=== PATIENT | male | born 1970 | race African-American/Black ===

== ENCOUNTER 2017-09-30 22:55 | Emergency (ER) | payer BC ==
[~2017-09-30] VITALS: Ht 188 cm; Wt 116.0 kg
[2017-09-30 23:22] VITALS: BP 172/105
== END 2017-10-01 | disposition left against medical advice (07) ==
LOC: ER 22:55
DX: R06.02 Shortness of breath (principal); Z53.21 Procedure and treatment not carried out due to patient leaving prior to being seen by health care provider

== ENCOUNTER 2017-11-26 12:18 | Emergency (ER) | payer BC ==
[~2017-11-26] VITALS: Ht 188 cm; Wt 113.0 kg
[2017-11-26 12:46] VITALS: BP 177/110
== END 2017-11-26 20:40 | disposition left against medical advice (07) ==
LOC: ER 17:40
DX: Z04.3 Encounter for examination and observation following other accident (principal); Z53.21 Procedure and treatment not carried out due to patient leaving prior to being seen by health care provider

== ENCOUNTER 2021-08-27 09:02 | Inpatient (IN) | payer OTHER ==
[~2021-08-27] VITALS: Ht 188 cm; Wt 110.2 kg
[2021-08-27] MEDS ORDERED: AMLODIPINE 2.5MG TABLET PO ONE (09:30)
[2021-08-27 09:59] LABS: BASOPHILS % 0.6 % (0.0-2.0); EOSINOPHILS % 4.6 % (0.0-5.0); HEMATOCRIT. 43.9 % (42.0-52.0); HEMOGLOBIN. 14.9 g/dL (14.0-18.0); LYMPHOCYTES % 34.9 % (20.0-50.0); MEAN CORPUSCULAR HEMOGLOBIN 29.3 pg (28.0-32.0); MEAN CORPUSCULAR VOLUME 86.2 fL (80.0-94.0); MEAN PLATELET VOLUME 7.1 fl (7.4-10.4); MONOCYTES % 9.7 % (2.0-8.0); NEUTROPHILS % 50.2 % (40.0-76.0); PLATELET 236 x1000/uL (130-400); RED BLOOD CELL COUNT 5.09 mill/uL (4.7-6.1); RED CELL DISTRIBUTION WIDTH 13.6 % (11.6-14.6)
[2021-08-27 10:13] LABS: CHLORIDE 109 mEq/L (98-107)
[2021-08-27] MEDS ORDERED: NITROGLYCERIN 0.1MG/HR PATCH TOP ONE (10:30)
[2021-08-27] MEDS ORDERED: AMLODIPINE 5MG TABLET PO ONE (10:30)
[2021-08-27] MEDS ORDERED: ONDANSETRON HCL 4MG/2ML INJ IV STA (10:33)
[2021-08-27] MEDS ORDERED: MORPHINE SULFATE 4 MG/ML CPJ (NOT FOR IM USE) IV STA (10:33)
[2021-08-27 11:39] LABS: CREATINE KINASE 260 IU/L (39-308)
[2021-08-27 12:15] LABS: *AMPHETAMINES SCREEN URINE NEGATIVE (NEGATIVE); *BARBITURATES SCREEN URINE NEGATIVE (NEGATIVE); *BENZODIAZEPINES SCREEN URINE NEGATIVE (NEGATIVE); *COCAINE SCREEN URINE NEGATIVE (NEGATIVE); CANNABINOID URINE SCREEN NEGATIVE (NEGATIVE); METHADONE URINE SCREEN NEGATIVE (NEGATIVE); OPIATES URINE SCREEN NEGATIVE (NEGATIVE); PHENCYCLIDINE URINE SCREEN NEGATIVE (NEGATIVE)
[2021-08-27] MEDS ORDERED: LORAZEPAM 0.5MG TABLET PO ONE (12:15)
[2021-08-27] MEDS ORDERED: ONDANSETRON HCL 4MG/2ML INJ IV PRN (14:30)
[2021-08-27] MEDS ORDERED: ACETAMINOPHEN 325MG TABLET PO PRN (14:30)
[2021-08-27] MEDS ORDERED: MAGNESIUM/ALUMINUM HYDROXIDE/SIMETHICONE 30ML UDC PO PRN (14:30)
[2021-08-27] MEDS ORDERED: NALOXONE HCL 0.4MG/ML VIAL IV PRN (14:45)
[2021-08-27] MEDS: ENOXAPARIN 30MG/0.3ML SYR SUBCUT SCH ×2 (15:31→22:24)
[2021-08-27] MEDS: CLONIDINE 0.1MG TABLET PO PRN ×2 (15:40→20:08)
[2021-08-27] MEDS: HYDROCODONE/ACETAMINOPHEN 5/325MG TABLET PO PRN ×2 (15:40→20:09)
[2021-08-27 17:51] VITALS: BP 157/87
[2021-08-27 18:00] VITALS: BP 154/90
[2021-08-27 20:01] VITALS: BP 150/68
[2021-08-27] MEDS: ATORVASTATIN CALCIUM 20MG TABLET PO SCH (20:09)
[2021-08-27] MEDS: ASPIRIN 81MG EC TABLET PO SCH (20:09)
[2021-08-27] MEDS: METOPROLOL TARTRATE 25MG TABLET PO SCH (20:09)
[2021-08-27 21:27] LABS: CREATINE KINASE 133 IU/L (39-308)
[2021-08-27 21:40] LABS: CREATINE KINASE MB FRACTION < 1.0 ng/mL (0.5-3.6)
[2021-08-27 22:01] VITALS: BP 132/75
[2021-08-27] MEDS: NITROGLYCERIN OINT 1GM/INCH UDPKT TD SCH (22:24)
[2021-08-28] VITALS (12 sets, daily range): BP systolic 109–172; BP diastolic 57–98
[2021-08-28] MEDS: OMEPRAZOLE 20MG CAPSULE EXTENDED RELEASE PO SCH (06:49)
[2021-08-28] MEDS: NITROGLYCERIN OINT 1GM/INCH UDPKT TD SCH ×3 (06:49→21:45)
[2021-08-28 07:57] LABS: BASOPHILS % 0.7 % (0.0-2.0); HEMATOCRIT. 40.1 % (42.0-52.0); LYMPHOCYTES % 42.6 % (20.0-50.0); MEAN CORPUSCULAR VOLUME 85.6 fL (80.0-94.0); MEAN PLATELET VOLUME 7.6 fl (7.4-10.4); MONOCYTES % 9.3 % (2.0-8.0); NEUTROPHILS % 42.4 % (40.0-76.0); PLATELET 240 x1000/uL (130-400); RED BLOOD CELL COUNT 4.68 mill/uL (4.7-6.1); RED CELL DISTRIBUTION WIDTH 13.8 % (11.6-14.6)
[2021-08-28 08:08] LABS: CHLORIDE 108 mEq/L (98-107)
[2021-08-28 08:28] LABS: CREATINE KINASE MB FRACTION < 1.0 ng/mL (0.5-3.6)
[2021-08-28 08:39] LABS: HDL CHOLESTEROL 49 mg/dL (40-59); T4 FREE 0.95 ng/dL (0.76-1.46)
[2021-08-28 08:41] LABS: PHOSPHORUS 3.6 mg/dL (2.5-4.9)
[2021-08-28 08:42] LABS: LDL CHOLESTEROL 140 mg/dL (5-100)
[2021-08-28] MEDS: ASPIRIN 81MG EC TABLET PO SCH (09:15)
[2021-08-28] MEDS: METOPROLOL TARTRATE 25MG TABLET PO SCH ×2 (09:16→21:44)
[2021-08-28] MEDS: ENOXAPARIN 30MG/0.3ML SYR SUBCUT SCH ×2 (09:16→21:45)
[2021-08-28 16:53] LABS: CREATINE KINASE MB FRACTION < 1.0 ng/mL (0.5-3.6)
[2021-08-28] MEDS: ATORVASTATIN CALCIUM 20MG TABLET PO SCH (21:44)
[2021-08-28] MEDS: CLONIDINE 0.1MG TABLET PO PRN (21:44)
[2021-08-28] MEDS: AMLODIPINE 5MG TABLET PO SCH (21:48)
[2021-08-29] VITALS (10 sets, daily range): BP systolic 136–157; BP diastolic 61–98
[2021-08-29] MEDS: OMEPRAZOLE 20MG CAPSULE EXTENDED RELEASE PO SCH ×2 (05:50→09:55)
[2021-08-29] MEDS: NITROGLYCERIN OINT 1GM/INCH UDPKT TD SCH (06:28)
[2021-08-29 07:08] LABS: BASOPHILS % 0.5 % (0.0-2.0); EOSINOPHILS % 3.5 % (0.0-5.0); HEMATOCRIT. 40.5 % (42.0-52.0); LYMPHOCYTES % 33.3 % (20.0-50.0); MEAN CORPUSCULAR VOLUME 86.7 fL (80.0-94.0); MEAN PLATELET VOLUME 7.4 fl (7.4-10.4); MONOCYTES % 10.3 % (2.0-8.0); NEUTROPHILS % 52.4 % (40.0-76.0); PLATELET 223 x1000/uL (130-400); RED BLOOD CELL COUNT 4.67 mill/uL (4.7-6.1); RED CELL DISTRIBUTION WIDTH 13.9 % (11.6-14.6)
[2021-08-29 07:14] LABS: PARTIAL THROMBOPLASTIN TIME 30.5 sec (23.4-31.0); PROTHROMBIN TIME 11.1 sec (9.6-11.0)
[2021-08-29 07:26] LABS: CHLORIDE 107 mEq/L (98-107)
[2021-08-29] MEDS ORDERED: REGADENOSON 0.4 MG/5 ML IV NR (09:00)
[2021-08-29] MEDS: AMLODIPINE 5MG TABLET PO SCH (09:55)
[2021-08-29] MEDS: ASPIRIN 81MG EC TABLET PO SCH (09:55)
[2021-08-29] MEDS: METOPROLOL TARTRATE 25MG TABLET PO SCH (09:56)
[2021-08-29] MEDS ORDERED: REGADENOSON 0.4 MG/5 ML IV ONE (10:48)
[2021-08-29] MEDS ORDERED: ISOSORBIDE MONONITRATE 30MG TABLET SR 24HR PO SCH (15:15)
[2021-08-29] MEDS ORDERED: ISOS30TA91 PO (16:16)
[2021-08-29] MEDS ORDERED: ASPI-1406 PO (16:16)
[2021-08-29] MEDS ORDERED: METO25TA6 PO (16:16)
[2021-08-29] MEDS ORDERED: AMLO5TAB88 PO (16:16)
[2021-08-29] MEDS ORDERED: ATOR20TA PO (16:16)
[2021-08-30] MEDS ORDERED: FAMOTIDINE 20MG TABLET PO SCH (06:50)
== END 2021-08-29 17:21 | disposition home or self-care (01) | DRG 305 ==
LOC: ER 09:45 → 3WST 12:42 → ENRESERV 16:28
PROVIDERS: ADMIT Internal Medicine; ATTEND Internal Medicine
DX: I16.0 Hypertensive urgency (principal); I24.9 Acute ischemic heart disease, unspecified; I10 Essential (primary) hypertension; R94.31 Abnormal electrocardiogram [ECG] [EKG]; E66.01 Morbid (severe) obesity due to excess calories; Z20.822 Contact with and (suspected) exposure to COVID-19; Z87.891 Personal history of nicotine dependence; Z68.31 Body mass index [BMI] 31.0-31.9, adult
CPT/HCPCS: 36415; 71045; 78452; 80048; 80053; 80061; 80076; 80305; 82550; 82553; 83036; 83735; 83880; 84100; 84439; 84443; 84484; 85025; 87426; 93005; 93017; 93306; 93970; 99291; A9500; J1650; J2270; J2405; J2785